=== PATIENT | female | born 1980 ===

== ENCOUNTER 2020-11-16 23:17 | Emergency (ER) | payer SELFPAY ==
[2020-11-17 04:26] VITALS: BP 135/85
[2020-11-17 05:05] LABS: Basophils # (Auto) 0.1 K/mm3 (0.0-0.1); Basophils % (Auto) 0.6 % (0.0-1.8); Eosinophils # (Auto) 0.1 K/mm3 (0.0-0.4); Hematocrit 33.7 % (30.3-42.9); Hemoglobin 10.4 gm/dl (10.1-14.3); Lymphocytes # (Auto) 2.1 K/mm3 (1.2-5.4); Lymphocytes % (Auto) 21.5 % (13.4-35.0); Mean Corpuscular HGB Conc 31 % (30-34); Monocytes % (Auto) 10.6 % (0.0-7.3); Platelet Count 348 K/mm3 (140-440); Red Blood Count 5.16 M/mm3 (3.65-5.03)
[2020-11-17 05:06] LABS: Mean Corpuscular Volume 65 fl (79-97)
[2020-11-17 05:16] LABS: Alanine Aminotransferase 40 units/L (7-56); Blood Urea Nitrogen 10 mg/dL (7-17); Calcium 9.8 mg/dL (8.4-10.2); Hemolysis Index 1
[2020-11-17 05:19] LABS: BUN/Creatinine Ratio 20
[2020-11-17 06:05] LABS: Bilirubin,Urine NEG (Negative); Blood,Urine MOD (Negative); Color,Urine Yellow (Yellow); Mucus,Urine FEW /HPF; Protein,Urine <15 mg/dL mg/dL (Negative); Urobilinogen,Urine < 2.0 mg/dL (<2.0)
[2020-11-17] MEDS ORDERED: ONDANSETRON 4 MG/2 ML INJ IV ONE (08:11)
[2020-11-17] MEDS ORDERED: SODIUM CHLORIDE 0.9% 1000 ML 1,000 ML IV ONE (08:11)
[2020-11-17] MEDS ORDERED: MORPHINE 4 MG/1 ML INJ IV ONE (08:11)
--- NOTE | 2020-11-17 08:15 | Emergency Department Report ---
ED Abdominal Pain HPI - General Chief Complaint: Abdominal Pain Stated Complaint: PAIN Time Seen by Provider: 11/17/20 08:10 Source: patient Mode of arrival: Ambulatory Limitations: No Limitations - History of Present Illness Initial Comments: Patient is 40 years old female with no significant past medical history. Patient presented to the ER complaining of lower abdominal pain mainly at the suprapubic right lower quadrant and right lower quadrant pain. Patient stated that pain started approximately 2 weeks ago and is getting worse. Patient compl aining of nausea and vomiting but no diarrhea. Patient denied any fever or chills. Patient stated that she is unable to keep anything down. Patient looks dehydrated. MD Complaint: abdominal pain -: week(s) (2) Location: LLQ, RLQ, suprapubic Radiation: none Migration to: no migration Severity scale (0 -10): 6 Quality: sharp Consistency: intermittent Associated Symptoms: nausea, vomiting, dysuria. denies: diarrhea - Related Data Allergies Allergy/AdvReac Type Severity Reaction Status Date / Time No Known Allergies Allergy Verified 11/17/20 04:26 ED Review of Systems ROS: Stated complaint: PAIN Other details as noted in HPI Comment: All other systems reviewed and negative Constitutional: denies: chills, diaphoresis Respiratory: denies: cough, orthopnea, shortness of breath, SOB with exertion, SOB at rest Cardiovascular: denies: chest pain, palpitations, dyspnea on exertion Gastrointestinal: abdominal pain, nausea, vomiting. denies: diarrhea Genitourinary: dysuria Musculoskeletal: denies: back pain Neurological: denies: headache, weakness, numbness, paresthesias, confusion, abnormal gait ED Past Medical Hx - Past Medical History Previous Medical History?: No - Surgical History Past Surgical History?: Yes Additional Surgical History: hysterectomy - Social History Smoking Status: Never Smoker Substance Use Type: None ED Physical Exam - General Limitations: No Limitations General appearance: alert, in no apparent distress - Head Head exam: Present: atraumatic, normocephalic, normal inspection - Eye Eye exam: Present: normal appearance - ENT ENT exam: Present: mucous membranes dry - Neck Neck exam: Present: normal inspection, full ROM. Absent: tenderness, meningismus - Respiratory Respiratory exam: Present: normal lung sounds bilaterally - Cardiovascular Cardiovascular Exam: Present: regular rate, normal rhythm, normal heart sounds - GI/Abdominal GI/Abdominal exam: Present: soft, tenderness, normal bowel sounds. Absent: distended, guarding, rebound, rigid, mass, bruit, pulsatile mass, hernia - Extremities Exam Extremities exam: Present: normal inspection, full ROM, normal capillary refill. Absent: tenderness, pedal edema, joint swelling, calf tenderness - Back Exam Back exam: Present: normal inspection, full ROM. Absent: CVA tenderness (R), CVA tenderness (L) - Neurological Exam Neurological exam: Present: alert, oriented X3, CN II-XII intact - Psychiatric Psychiatric exam: Present: normal mood - Skin Skin exam: Present: warm, dry, intact, normal color ED Course Vital Signs 11/17/20 04:22 Temperature 98.4 F Pulse Rate 96 H Respiratory 16 Rate Blood Pressure 135/85 [Left] O2 Sat by Pulse 98 Oximetry ED Medical Decision Making - Lab Data Result diagrams: 11/17/20 04:34 11/17/20 04:34 - Radiology Data Radiology results: report reviewed - Medical Decision Making Patient is 40 years old female with no significant past medical history. Patient presented to the ER complaining of lower abdominal pain mainly at the suprapubic right lower quadrant and right lower quadrant pain. Patient stated that pain started approximately 2 weeks ago and is getting worse. Patient complaining of nausea and vomiting but no diarrhea. Patient denied any fever or chills. Patient stated that she is unable to keep anything down. Patient looks dehydrated. Patient received normal saline, Zofran and morphine. Labs reviewed and showed a UTI. CT abdomen pelvis with IV contrast showed acute pyelonephritis. Patient received Rocephin 1 g IV. Patient found to have a blood glucose of 375. Pat ient received insulin 4 units. Patient stated that she does have history of diabetes but she is not taking any medication. Patient given prescription for ciprofloxacin, Zofran and Metformin. Patient strongly advised to follow-up with her primary care physician in the next 2 to 3 days and to return to the ER if she develop any new symptoms. Critical care attestation.: If time is entered above; I have spent that time in minutes in the direct care of this critically ill patient, excluding procedure time. ED Disposition Clinical Impression: Acute abdominal pain, Acute pyelonephritis, Acute hyperglycemia Disposition: 01 HOME / SELF CARE / HOMELESS Is pt being admited?: No Condition: Stable Instructions: Abdominal Pain (ED), Hyperglycemia, [id number], Pyelonephritis, Adult, [id number] Referrals: ART ELAM MD [Staff Physician] - 3-5 Days Print Language: TAJIK
[2020-11-17] MEDS ORDERED: INSULIN REGULAR, HUMAN 100 UNITS/1 ML IV ONE ×2 (08:47→13:00)
--- NOTE | 2020-11-17 12:18 | Cat Scan Report ---
CT abdomen pelvis w con INDICATION / CLINICAL INFORMATION: abdominal pain OMNI 300 100ML. TECHNIQUE: Axial CT images were obtained through the abdomen and pelvis after IV contrast. All CT sc ans at this location are performed using CT dose reduction for ALARA by means of automated exposure c ontrol. COMPARISON: None available. FINDINGS: LOWER CHEST: No significant abnormality LIVER: Hepatic steatosis with hepatomegaly, measuring 20.6 cm in craniocaudal dimension. GALLBLADDER/BILIARY TREE: No significant abnormality PANCREAS: No significant abnormality SPLEEN: No significant abnormality ADRENALS: No significant abnormality KIDNEYS / URETER: Asymmetric right perinephric stranding with urothelial thickening of the right caleb l collecting system. There are patchy areas of hypoenhancement within the mid to superior pole of the right kidney. Ill-defined low-density region within the posterior upper to midpole of the right kidn ey measures 1.8 cm (series 2 image 69), concerning for acute focal nephritis. No well organized renal abscess identified. The left kidney and ureter are unremarkable. There is no significant hydronephro sis on either side. URINARY BLADDER: No significant abnormality REPRODUCTIVE ORGANS: No significant abnormality STOMACH / BOWEL: No significant abnormality. The appendix is normal in caliber. LYMPH NODES: Shotty retroperitoneal lymph nodes are likely reactive. VASCULATURE: No significant abnormality. OTHER: No free air, free fluid, or focal fluid collection is identified. SKELETAL SYSTEM: No acute osseous findings. IMPRESSION: 1. Acute pyelonephritis of the right kidney with focal nephritis at the upper to mid pole. No evidenc e of renal abscess at this time. 2. Other chronic and incidental findings as above. Signer Name: Luis Fernando Nixon MD Signed: 11/17/2020 12:14 PM Workstation Name: [id number]
[2020-11-17] MEDS ORDERED: cefTRIAXone/NS 1 GM/50 ML 1 GM/50 ML BAG IV ONE (12:43)
== END 2020-11-17 16:01 | disposition home or self-care (01) ==
LOC: ED 23:17
DX: R10.31 Right lower quadrant pain (principal); N10 Acute pyelonephritis; R73.9 Hyperglycemia, unspecified; Z90.710 Acquired absence of both cervix and uterus
CPT/HCPCS: 36415; 74177; 80053; 81001; 82962; 83690; 84703; 85025; 87040; 87086; 87186; 96361; 96374; 96375; 99284; J0696; J2270; J2405; J7030; Q9967; J1815